=== PATIENT | male | born 1960 | race Two or more races ===

== ENCOUNTER → 2024-11-15 | Emergency (ER) | payer OTHER ==
[~2024-11-15] VITALS: Ht 167.6 cm; Wt 68.0 kg
[~2024-11-15] MED LIST: CEFTRIAXONE SODIUM 1,000 MG VIAL IV ONE; CEFTRIAXONE SODIUM 1,000 MG VIAL ONE; LIDOCAINE HCL 1% 10ML VIAL ONE
== END | disposition home or self-care (01) ==
LOC: ER 18:31
DX: S61.32 Laceration with foreign body of finger with damage to nail (principal); W26.8XXA Contact with other sharp object(s), not elsewhere classified, initial encounter; Y93.89 Activity, other specified; Y92.018 Other place in single-family (private) house as the place of occurrence of the external cause